=== PATIENT | male | born 1980 | race Caucasian/White ===

== ENCOUNTER 2024-03-03 17:52 | Emergency (ER) | payer MEDICAID ==
[2024-03-03 18:04] LABS: BASOPHILS ABSOLUTE AUTO 0.06 K/uL (0.00-0.10); BASOPHILS PERCENT AUTO 0.5 % (0.1-1.3); EOSINOPHILS PERCENT AUTO 0.9 % (0.0-5.4); HEMATOCRIT 49.3 % (38.4-49.7); HEMOGLOBIN 17.5 g/dL (12.9-16.9); IMMATURE GRAN ABSOLUTE AUTO 0.03 K/uL (0.00-0.23); IMMATURE GRAN PERCENT AUTO 0.3 % (0.0-0.7); LYMPHOCYTES ABSOLUTE AUTO 3.02 K/uL (0.8-3.3); LYMPHOCYTES PERCENT AUTO 26.1 % (11.4-47.7); MEAN CORPUSCULAR HEMOGLOBIN 31.4 pg (31.6-35.5); MEAN CORPUSCULAR HGB CONC 35.5 g/dL (31.6-35.5); MEAN CORPUSCULAR VOLUME 88.5 fL (81.4-99.0); MONOCYTES ABSOLUTE AUTO 0.57 K/uL (0.20-0.90); MONOCYTES PERCENT AUTO 4.9 % (3.3-12.6); NEUTROPHILS ABSOLUTE AUTO 7.77 K/uL (1.0-7.6); NEUTROPHILS PERCENT AUTO 67.3 % (40.0-78.1); PLATELET COUNT,PLT 236 K/uL (130-375); RED BLOOD CELL COUNT 5.57 M/uL (4.14-5.76); WHITE BLOOD CELL COUNT,WBC 11.6 K/uL (3.2-11.0)
[2024-03-03 18:27] LABS: BLOOD UREA NITROGEN,BUN 19 mg/dL (7-18); CALCIUM 9.4 mg/dL (8.5-10.1); CARBON DIOXIDE,CO2 28 mmol/L (21-32); CHLORIDE,CL 102 mmol/L (100-108); CREATININE 1.4 mg/dL (0.8-1.3); EST CRCL DRUG DOSING (CG) 71.71 mL/min; ESTIMATED GFR 64 mL/min (>60); GLUCOSE RANDOM 108 mg/dL (74-106); POTASSIUM,K 3.4 mmol/L (3.6-5.2); SODIUM,NA 140 mmol/L (140-148)
[2024-03-03 18:28] LABS: ANION GAP 13.4 mmol/L (5.0-14.0); TROPONIN I HIGH SENSITIVITY < 4.0 pg/mL (<=60.3)
[2024-03-03 19:29] VITALS: BP 147/91; PULSE 88
== END 2024-03-03 19:49 | disposition home or self-care (01) ==
LOC: JP.ED 17:52
DX: R00.2 Palpitations (principal); R55 Syncope and collapse; E86.0 Dehydration; Z88.5 Allergy status to narcotic agent
CPT/HCPCS: 36415; 70450; 71046; 71046-26; 80048; 84484; 85025; 93005; 99285

== ENCOUNTER 2024-03-08 13:55 | Emergency (ER) | payer MEDICAID ==
[2024-03-08 15:38] VITALS: BP 142/95; PULSE 95
[2024-03-08] MEDS ORDERED: Lidocaine 1% with EPINEPHrine 1:100,000 50 ML MDV ONE (16:55)
[2024-03-08] MEDS: Lidocaine 1% with EPINEPHrine 1:100,000 50 ML MDV INJECT ONE (17:00)
== END 2024-03-08 17:23 | disposition home or self-care (01) ==
LOC: JP.ED 13:55
DX: K64.5 Perianal venous thrombosis (principal); F17.209 Nicotine dependence, unspecified, with unspecified nicotine-induced disorders
CPT/HCPCS: 99282

== ENCOUNTER 2024-03-09 17:25 | Emergency (ER) | payer MEDICAID ==
[2024-03-09 18:01] VITALS: BP 140/88; PULSE 96
== END 2024-03-09 19:07 | disposition home or self-care (01) ==
LOC: JP.ED 17:25
DX: K64.4 Residual hemorrhoidal skin tags (principal); F17.200 Nicotine dependence, unspecified, uncomplicated; Z88.8 Allergy status to other drugs, medicaments and biological substances
CPT/HCPCS: 99283